=== PATIENT | male | born 1990 | race African-American/Black ===

== ENCOUNTER 2016-09-04 15:11 | Emergency (ER) | payer OTHER ==
[2016-09-04] MEDS ORDERED: HYDROmorphone INJ* 1 MG/ML CARPUJECT SYRINGE IV ONE ×2 (15:15→18:20)
[2016-09-04] MEDS ORDERED: Ondansetron INJ* 2 MG/ML VIAL IV ONE (15:15)
[2016-09-04] MEDS ORDERED: NS 0.9% 1000 ML* 1,000 ML IV ONE (15:15)
--- NOTE | 2016-09-04 16:09 | RAD ---
Indication: Traumatic Distal femur fracture left femur. 4 views of the knee demonstrates fracture of the lateral femoral condyle. Lucency is noted in the lateral femoral condyle and the possibility of a pathologic fracture should be considered. IMPRESSION: Likely pathologic fracture of the distal left femur and the lateral femoral condyle.
--- NOTE | 2016-09-04 16:12 | RAD ---
Indication: Distal left femur fracture, preop. Single frontal view of the chest performed at 1538 hours was reviewed. No prior study is available for comparison. No mediastinal shift is noted. Heart is of normal size and configuration. Lung merritt appear clear. IMPRESSION: NO ACTIVE CARDIOPULMONARY DISEASE IS NOTED.
[2016-09-04 16:58] LABS: Hematocrit 43 % (42-52); Hemoglobin 14.4 g/dl (14.0-18.0); Mean Corpuscular HGB Conc 34 g/dl (31-36); Mean Corpuscular Hemoglobin 31 pg (27-31); Mean Corpuscular Volume 91 fL (80-94); Mean Platelet Volume 9 um3 (7.4-10.4); Red Blood Count 4.69 10^6/ul (4.0-5.4); Red Cell Distribution Width 13 % (10.5-15); White Blood Count 12.6 10^3/ul (3.5-10.8)
[2016-09-04 17:03] LABS: Add Diff/Slide Review? Slide Review Added; Comments Flag Yes
[2016-09-04 17:12] LABS: Albumin 4.3 g/dL (3.2-5.2); BUN/Creatinine Ratio 14.6 (8-20); Calcium 10.2 mg/dL (8.6-10.3); EGFR African American 114.1 (>60); EGFR Non-African American 88.7 (>60); Globulin 3.6 g/dL (2-4); Total Bilirubin 1.3 mg/dL (0.2-1.0); Total Protein 7.9 g/dL (6.4-8.9)
[2016-09-04 17:16] LABS: Potassium 4.4 mmol/L (3.5-5.0)
--- NOTE | 2016-09-04 18:13 | ED ---
Dominik Chisholm Adam, scribed for Rosario Babcock MD on 09/04/16 at 1518 . Lower Extremity - HPI Summary HPI Summary: Pt is a 26 year old male presenting with a left knee injury. He was playing basketball 3 days ago (09/01) when he heard his left knee "pop" and he has been experiencing pain since then. The knee is swollen and tender to the touch. Pt is an inmate at [address] [place], [place] [address]al [facility] and was sent here because of concerns about the X-ray images that were obtained. No PMHx or FMHx of DM, HTN, or anything else. No tobacco/alcohol/drug use. - History of Current Complaint Stated Complaint: LEFT KNEE INJURY Hx Obtained From: Patient Mechanism Of Injury: Blunt Trauma Onset of Pain: Immediate Onset/Duration: Still Present Severity Initially: Moderate Severity Currently: Moderate Timing: Constant, Lasting Days Location: Is Discrete @ - Left knee Associated Signs And Symptoms: Positive: Swelling, Knee Pain Aggravating Factor(s): Standing, Ambulation, Movement, Weight Bearing Alleviating Factor(s): Nothing - Allergies/Home Medications Allergies/Adverse Reactions: Allergies Allergy/AdvReac Type Severity Reaction Status Date / Time No Known Allergies Allergy Verified 09/04/16 16:21 Home Medications: Home Medications NK [No Home Medications Reported] 09/04/16 [History Confirmed 09/04/16] PMH/Surg Hx/FS Hx/Imm Hx Previously Healthy: Yes Endocrine/Hematology History: Denies: Hx Diabetes Cardiovascular History: Denies: Hx Hypertension - Family History Known Family History: Positive: None Negative: Hypertension, Diabetes - Social History Occupation: Unemployed - Incarcerated Lives: Alone Alcohol Use: None Hx Substance Use: No Substance Use Type: Reports: None Hx Tobacco Use: No Smoking Status (MU): Never Smoked Tobacco Review of Systems Positive: Arthralgia - Left knee, Edema - Left knee Skin: Negative All Other Systems Reviewed And Are Negative: Yes Physical Exam Triage Information Reviewed: Yes Vital Signs On Initial Exam: Initial Vitals Temp Pulse Resp BP Pulse Ox 97.9 F 85 16 153/88 100 09/04/16 15:21 09/04/16 15:21 09/04/16 15:21 09/04/16 15:21 09/04/16 15:21 Vital Signs Reviewed: Yes Appearance: Positive: Well-Appearing, No Pain Distress Skin: Positive: Warm, Skin Color Reflects Adequate Perfusion, Dry Eyes: Positive: EOMI, TOMÁS ENT: Positive: Pharynx normal, TMs normal Neck: Positive: Supple, Nontender Respiratory/Lung Sounds: Positive: Clear to Auscultation, Breath Sounds Present. Negative: Rales, Rhonchi, Wheezes Cardiovascular: Positive: RRR. Negative: Murmur, Rub Abdomen Description: Positive: Nontender, Soft. Negative: Distended, Guarding Bowel Sounds: Positive: Present Musculoskeletal: Positive: Other - Large effusion in left knee. Tender to palpation. Neurological: Positive: Sensory/Motor Intact, Alert, Oriented to Person Place, Time, CN Intact II-III Psychiatric: Positive: Affect/Mood Appropriate Diagnostics - Vital Signs Vital Signs Temp Pulse Resp BP Pulse Ox 09/04/16 16:28 20 09/04/16 15:21 97.9 F 85 16 153/88 100 - Laboratory Lab Results: Lab Results 09/04/16 09/04/16 09/04/16 Range/Units 16:45 16:45 16:45 WBC 12.6 H (3.5-10.8) 10^3/ul RBC 4.69 (4.0-5.4) 10^6/ul Hgb 14.4 (14.0-18.0) g/dl Hct 43 (42-52) % MCV 91 (80-94) fL MCH 31 (27-31) pg MCHC 34 (31-36) g/dl RDW 13 (10.5-15) % Plt Count 173 (150-450) 10^3/ul MPV 9 (7.4-10.4) um3 Neut % (Auto) 77.1 (38-83) % Lymph % (Auto) 10.8 L (25-47) % Nolan % (Auto) 11.1 H (1-9) % Eos % (Auto) 0.4 (0-6) % Baso % (Auto) 0.6 (0-2) % Absolute Neuts (auto) 9.7 H (1.5-7.7) 10^3/ul Absolute Lymphs (auto) 1.4 (1.0-4.8) 10^3/ul Absolute Monos (auto) 1.4 H (0-0.8) 10^3/ul Absolute Eos (auto) 0 (0-0.6) 10^3/ul Absolute Basos (auto) 0.1 (0-0.2) 10^3/ul Absolute Nucleated RBC 0 10^3/ul Nucleated RBC % 0 INR (Anticoag Therapy) 1.24 H (0.89-1.11) Sodium 130 L (133-145) mmol/L Potassium 4.4 (3.5-5.0) mmol/L Chloride 94 L (101-111) mmol/L Carbon Dioxide 32 (22-32) mmol/L Anion Gap 4 (2-11) mmol/L BUN 15 (6-24) mg/dL Creatinine 1.03 (0.67-1.17) mg/dL Est GFR ( Amer) 114.1 (>60) Est GFR (Non-Af Amer) 88.7 (>60) BUN/Creatinine Ratio 14.6 (8-20) Glucose 110 H (70-100) mg/dL Calcium 10.2 (8.6-10.3) mg/dL Total Bilirubin 1.30 H (0.2-1.0) mg/dL AST 25 (13-39) U/L ALT 13 (7-52) U/L Alkaline Phosphatase 68 (34-104) U/L Total Protein 7.9 (6.4-8.9) g/dL Albumin 4.3 (3.2-5.2) g/dL Globulin 3.6 (2-4) g/dL Albumin/Globulin Ratio 1.2 (1-3) Result Diagrams: 09/04/16 16:45 09/04/16 16:45 Lab Statement: Any lab studies that have been ordered have been reviewed, and results considered in the medical decision making process. - Radiology CXR Radiology Interpretation Completed By: Radiologist - IMPRESSION: NO ACTIVE CARDIOPULMONARY DISEASE IS NOTED. KNEE X-RAY Radiology Interpretation Completed By: Radiologist - IMPRESSION: Likely pathologic fracture of the distal left femur and the lateral femoral condyle. Lower Extremity Course/Dx - Course Course Of Treatment: 26 yo male who fell while playing basketball in intermediate hitting knee with onset of swelling and inability to walk on 09/01/16 at 5 points. He was sent after an xray showed a question of a fracture. 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 Films were reviewed by [facility] orthopedics and given the pathology it was thought pt needed a specialist who could deal with the tumor and the fracture. Pt was accepted to the ED at [facility] by Dr. Pritchard at 1800 - Diagnoses Provider Diagnoses: Femoral distal fracture - Physician Notifications Discussed Care of Patient With: Hospitalist at 16:43. Dr. Pritchard at [facility] ED in [place] at approximately 18:00. Patient will be transferred. Discharge - Discharge Plan Condition: Stable Disposition: TRANS HIGHER LVL OF CARE FAC Referrals: Krystian MENON,Martinez Marte [Primary Care Provider] - The documentation as recorded by the Dominik peace Adam accurately reflects the service I personally performed and the decisions made by me, Rosario Babcock MD.
[2016-09-04 19:25] VITALS: BP 150/82
== END 2016-09-04 19:23 | disposition short-term general hospital (02) ==
LOC: ED 15:11
DX: S72.402A Unspecified fracture of lower end of left femur, initial encounter for closed fracture (principal); R60.9 Edema, unspecified; M25.562 Pain in left knee; X58.XXXA Exposure to other specified factors, initial encounter; Y93.67 Activity, basketball; Y92.9 Unspecified place or not applicable; Y99.9 Unspecified external cause status
CPT/HCPCS: 36415; 71010; 80053; 85025; 85610; 96374; 96375; 99282; J1170; J2405